=== PATIENT | female | born 1995 | race Asian ===

== ENCOUNTER 2018-10-15 15:07 | Outpatient (CLI) | payer OTHER ==
--- NOTE | 2018-10-15 17:30 | RAD ---
CERVICAL SPINE 3 VIEWS: Date: 10/15/18 COMPARISON: None. HISTORY: Cervical strain, muscle pain. FINDINGS: There is facet hypertrophy suspected at C7-T1 with mild inferior end plate irregularity of the C7 martha tebral body. No prevertebral soft tissue swelling. No anterolisthesis or retrolisthesis. No acute fra cture or evidence of dislocation is evident. Open-mouth odontoid view demonstrates a normal appearing dens and C1-2 articulation. IMPRESSION: No acute findings. If there are radicular symptoms, MRI suggested. POS: OFF
== END 2018-10-15 15:08 | disposition home or self-care (01) ==
LOC: NAV RAD 15:07
PROVIDERS: ATTEND Family Medicine
DX: S16.1XXA Strain of muscle, fascia and tendon at neck level, initial encounter (principal); Z87.828 Personal history of other (healed) physical injury and trauma
CPT/HCPCS: 72040